=== PATIENT | male | born 1990 | race Caucasian/White ===

== ENCOUNTER → 2024-05-08 10:57 | Outpatient (AMB) | payer OTHER, SELFPAY ==
--- NOTE | 2024-05-08 11:08 | AM.OFFWIN_ITS ---
Intake Vital Signs 05/08/24 11:13 05/08/24 11:19 Height 5 ft 10 in Weight 227 lb 4 oz BMI 32.6 BP 144/70 H 136/72 Blood Pressure Location Rt brachial Rt brachial Position Sitting Sitting Respiration 16 Pulse 73 Pulse Source Pulse Oximeter Temp 98.4 F Temp Source Oral Pulse Oximetry (%) 99 Oxygen Delivery Method Room Air Intake Visit Reasons: Sore throat Intake Note: Sore throat. Right ear pain and bleeding, coughing up blood. Symptoms started yesterday afternoon. Patient Tobacco Use Status: Never used Tobacco Allergies No Known Allergies [No Known Allergies*] Allergy (Verified 05/08/24 11:24) Medication List - Last Reconciled 05/08/24 by Mis Rivas, HUMAN RESOURCES OPERATIONS DIRECTOR- cariprazine (Vraylar) 1.5 mg PO DAILY dextroamphetamine-amphetamine 20 mg 1 tab PO DAILY lamotrigine mg PO paroxetine HCl 20 mg PO DAILY tadalafil 10 mg PO Do you need a note to return to daycare/school/sports/work: Yes Return to daycare/school/sports/work/other note: work HPI HPI Comments History of Present Illness Details Here today with the complaints of sore throat and right ear pain. Reports he had a sudden onset of sore throat yesterday quickly followed by right ear pain. During the night he heard a burst and had bloody drainage coming from the right ear. He started using his girlfriend's antibiotic/steroid eardrops to the right ear. He also has a cough with some mucus production. 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 Awake alert NAD Sclera and conjunctiva clear bilat Nares patent, turbinates pale and edematous, no sinus tenderness with palpation bilat TM ruptured on right, bloody purulent drainage noted in EAC, left TM intact with fluid behind eardrum, no erythema MMM, pharynx diffuse erythema, halitosis RRR LS CTAB Plan Despite a negative strep test, I will treat him with an antibiotic given his physical exam. Augmentin 1 tablet p.o. b.i.d. x7 days. To treat the otitis media with rupture on the right prescribed steroid ear drop 1 drop daily for 14 days. Educated to avoid getting anything into that ear. Where a an ear plug to protect shower water, no swimming, no ear pods or the like. Strongly recommend a recheck in about 10 days to ensure resolution of the otitis media with rupture on the right side. [facility] Social History Patient Tobacco Use Status: Never used Tobacco Review of Systems Const All systems reviewed & are unremarkable except as noted in HPI and below Physical Exam Vital Signs: Last Vital Signs Temp 98.4 F 05/08/24 11:13 Pulse 73 05/08/24 11:13 Resp 16 05/08/24 11:13 BP 136/72 05/08/24 11:19 Pulse Ox 99 05/08/24 11:13 Oxygen Delivery Method Room Air 05/08/24 11:13 BMI result Body Mass Index 32.6 Results AMB Rapid Strep AMB Rapid Strep Negative Last Edit by Loreto Nloasco CMA on 05/08/24 11:2 4 Assessment & Plan Assessment & Plan (1) Otitis media with rupture of tympanic membrane: Code(s): H66.90 - Otitis media, unspecified, unspecified ear; H72.90 - Unspecified perforation of tympanic membrane, unspecified ear Qualifiers: Laterality: right Qualified Code(s): H66.91 - Otitis media, unspecified, right ear; H72.91 - Unspecified perforation of tympanic membrane, right ear (2) Strep pharyngitis: Comment: Total time spent caring for the patient today was 30 minutes. This includes time spent before the visit reviewing the chart, time spent during the visit, and time spent after the visit on documentation This note is constructed using voice recognition software. While every effort has been made to ensure accuracy in branch operation evaluation manager, still errors may have been included Sometimes, these errors may affect the content or meaning of the given sentence . Code(s): J02.0 - Streptococcal pharyngitis Plan: . Plan . Orders: Orders AMB Rapid Strep Screen Today J02.9 - Acute pharyngitis, unspecified Medications: New amoxicillin-pot clavulanate 875-125 mg 1 tab PO Q12H 10 days 20 tabs 0RF dexamethasone 0.1% 1 appl otic (ear) right DAILY 14 days 5 mL 0RF Patient Instructions: Plan Despite a negative strep test, I will treat him with an antibiotic given his physical exam. Augmentin 1 tablet p.o. b.i.d. x7 days. To treat the otitis media with rupture on the right prescribed steroid ear drop 1 drop daily for 14 days. Educated to avoid getting anything into that ear. Where a an ear plug to protect shower water, no swimming, no ear pods or the like. Strongly recommend a recheck in about 10 days to ensure resolution of the otitis media with rupture on the right side. Good hand hygiene and respiratory etiquette can reduce the spread of all types of group A strep infection. Hand hygiene is especially important after coughing and sneezing and before preparing foods or eating. Good respiratory etiquette involves covering your cough or sneeze. Do not share food or drinks. Treating an infected person with an antibiotic for 12 hours or longer limits their ability to transmit the bacteria. Thus, people with group A strep pharyngitis should stay home from work, school, or daycare until: They are afebrile AND At least 12?24 hours after starting appropriate antibiotic therapy I also recommend changing toothbrush and washing bed linen in hot water 24 hours after starting antibiotics Coding Level of Care Code Est Pt Level 4 (53868) Diagnoses Otitis media of right ear with rupture of tympanic membrane H66.91; H72.91 Laterality: right Strep pharyngitis J02.0
[2024-05-08 11:13] VITALS: BP 144/70; PULSE 73; RESP 16; TEMP 36.9; O2SAT 99; BMI 32.6
[2024-05-08 11:19] VITALS: BP 136/72
== END ==
PROVIDERS: PCP Internal Medicine; Visit Provider Nurse Practitioner Family
DX: H66.91 Otitis media, unspecified, right ear (principal); H72.91 Unspecified perforation of tympanic membrane, right ear; J02.0 Streptococcal pharyngitis; J02.9 Acute pharyngitis, unspecified
CPT/HCPCS: 87880; 99214